=== PATIENT | male | born 1990 | race Asian ===

== ENCOUNTER 2016-07-07 04:47 | Emergency (ER) | payer BC ==
[~2016-07-07] VITALS: Ht 180.3 cm; Wt 108.9 kg
[2016-07-07 05:42] LABS: PLATELET COUNT 251 K/uL (142-355)
[2016-07-07 06:07] VITALS: BP 175/95; TEMP 99.4
== END 2016-07-07 06:08 | disposition home or self-care (01) ==
LOC: ED 04:47
DX: J20.9 Acute bronchitis, unspecified (principal)
CPT/HCPCS: 36415; 85027; 87081; 87804; 87880; 96372; 99284; J0696; J1100

== ENCOUNTER 2020-07-08 15:58 | Outpatient (CLI) | payer OTHER | END 2020-07-08 21:17 | disposition home or self-care (01) | LOC: INF 15:58 | PROVIDERS: ATTEND Internal Medicine | DX: Z23 Encounter for immunization (principal) | CPT/HCPCS: 96372 ==

== ENCOUNTER 2020-08-03 09:40 | Outpatient (CLI) | payer BC ==
[2020-08-03 10:16] LABS: PLATELET COUNT 265 K/uL (142-355)
[2020-08-03 10:27] LABS: POTASSIUM 4.1 mmol/L (3.6-5.2)
== END 2020-08-03 21:35 | disposition home or self-care (01) ==
LOC: LABW 09:40
PROVIDERS: ATTEND Nurse Practitioner Family
DX: R10.9 Unspecified abdominal pain (principal)
CPT/HCPCS: 36415; 80053; 81000; 82150; 82270; 83630; 83690; 85027; 87015; 87045; 87338; 87899

== ENCOUNTER 2020-08-04 13:42 | Outpatient (CLI) | payer BC, OTHER | END 2020-08-04 21:26 | disposition home or self-care (01) | LOC: INF 13:42 | PROVIDERS: ATTEND Internal Medicine | DX: Z23 Encounter for immunization (principal) | CPT/HCPCS: 96372 ==

== ENCOUNTER 2021-04-22 13:56 | Outpatient (CLI) | payer BC, OTHER | END 2021-04-22 19:28 | disposition home or self-care (01) | LOC: INF 13:56 | PROVIDERS: ATTEND Internal Medicine Endocrinology, Diabetes & Metabolism | DX: Z23 Encounter for immunization (principal) ==

== ENCOUNTER 2021-05-10 10:48 | Outpatient (CLI) | payer BC | END 2021-05-10 18:52 | disposition home or self-care (01) | LOC: RESP 10:48 | PROVIDERS: ATTEND Nurse Practitioner Family | DX: Z00.00 Encounter for general adult medical examination without abnormal findings (principal); Z71.89 Other specified counseling; I10 Essential (primary) hypertension; E78.5 Hyperlipidemia, unspecified | CPT/HCPCS: 93005 ==

== ENCOUNTER 2022-11-12 21:59 | Emergency (ER) | payer BC ==
[~2022-11-12] VITALS: Ht 180.3 cm; Wt 107.5 kg
[2022-11-12 22:40] VITALS: BP 152/94; TEMP 98.9
[2022-11-13] MEDS ORDERED: LISI10TA11 PO (06:10)
== END 2022-11-12 22:40 | disposition home or self-care (01) ==
LOC: ED 21:59
PROC: 0HQFXZZ Repair Right Hand Skin, External Approach (ICD-10-PCS; principal; 2022-11-12)
DX: S61.011A Laceration without foreign body of right thumb without damage to nail, initial encounter (principal); W22.09XA Striking against other stationary object, initial encounter; Y93.89 Activity, other specified; Y92.9 Unspecified place or not applicable; Y99.9 Unspecified external cause status; I10 Essential (primary) hypertension; E66.9 Obesity, unspecified
CPT/HCPCS: 90471; 90715; 99283

== ENCOUNTER 2022-11-23 17:33 | Outpatient (CLI) | payer BC ==
[~2022-11-23 17:33] MED LIST: LISI10TA11 PO
== END 2022-11-23 20:01 | disposition home or self-care (01) ==
LOC: RAD 17:33
PROVIDERS: ATTEND Nurse Practitioner Family
DX: S69.91XA Unspecified injury of right wrist, hand and finger(s), initial encounter (principal); Y92.89 Other specified places as the place of occurrence of the external cause